=== PATIENT | male | born 1980 | race Hispanic/Latino ===

== ENCOUNTER 2018-09-19 09:13 | Emergency (ER) | payer OTHER, BC ==
[2018-09-19 09:29] VITALS: TEMP 97.8; O2SAT 96; BMI 26.6
--- NOTE | 2018-09-19 09:59 | ED PDOC ---
Arrival/HPI - General Chief Complaint: Abnormal Skin Integrity Time Seen by Provider: 09/19/18 09:36 Historian: Patient - History of Present Illness Narrative History of Present Illness (Text): 09/19/18 09:57 38yo male with pmhx of hypertension who present with complaint of laceration to his right index finger. States he accidentally cut himself with his pocket knife this morning. Notes he is up to date with his TD booster. Denies any other complaint. Have FROM. Past Medical History - Provider Review Nursing Documentation Reviewed: Yes - Infectious Disease Hx of Infectious Diseases: None - Cardiac Hx Cardiac Disorders: Yes Hx Hypertension: Yes - Pulmonary Hx Respiratory Disorders: No - Neurological Hx Neurological Disorder: No - HEENT Hx HEENT Disorder: No - Renal Hx Renal Disorder: No - Endocrine/Metabolic Hx Endocrine Disorders: No - Hematological/Oncological Hx Blood Disorders: No - Integumentary Hx Dermatological Disorder: No - Musculoskeletal/Rheumatological Hx Musculoskeletal Disorders: No - Gastrointestinal Hx Gastrointestinal Disorders: No - Genitourinary/Gynecological Hx Genitourinary Disorders: No - Psychiatric Hx Psychophysiologic Disorder: No Hx Substance Use: No Family/Social History - Physician Review Nursing Documentation Reviewed: Yes Family/Social History: Unknown Family HX Smoking Status: Never Smoked Hx Alcohol Use: Yes Frequency of alcohol use: Socially Hx Substance Use: No Allergies/Home Meds Allergies/Adverse Reactions: Allergies amoxicillin Allergy (Verified 09/19/18 09:29) ANAPHYLAXIS Home Medications: Home Meds Medication Instructions Recorded Confirmed valACYclovir [Valtrex] 500 mg PO DAILY 09/19/18 09/19/18 Review of Systems - Physician Review All systems were reviewed & negative as marked: Yes - Review of Systems Constitutional: Normal Eyes: Normal ENT: Normal Respiratory: Normal Cardiovascular: Normal Gastrointestinal: Normal Genitourinary Male: Normal Musculoskeletal: Normal Skin: Laceration (Right 2nd finger) Neurological: Normal Endocrine: Normal Hemo/Lymphatic: Normal Psychiatric: Normal Physical Exam Vital Signs Reviewed: Yes Vital Signs Temp Pulse Resp BP Pulse Ox 09/19/18 09:29 97.8 F 84 17 134/82 96 Temperature: Afebrile Blood Pressure: Normal Pulse: Regular Respiratory Rate: Normal Appearance: Positive for: Well-Appearing, Non-Toxic, Comfortable Pain Distress: None Mental Status: Positive for: Alert and Oriented X 3 - Systems Exam Head: Present: Atraumatic, Normocephalic Pupils: Present: PERRL Extroacular Muscles: Present: EOMI Conjunctiva: Present: Normal Mouth: Present: Moist Mucous Membranes Neck: Present: Normal Range of Motion Respiratory/Chest: Present: Clear to Auscultation, Good Air Exchange. No: Respiratory Distress, Accessory Muscle Use Cardiovascular: Present: Regular Rate and Rhythm, Normal S1, S2. No: Murmurs Abdomen: No: Tenderness, Distention, Peritoneal Signs Back: Present: Normal Inspection Upper Extremity: Present: Normal Inspection. No: Cyanosis, Edema Lower Extremity: Present: Normal Inspection. No: Edema Neurological: Present: GCS=15, CN II-XII Intact, Speech Normal Skin: Present: Warm, Dry, Normal Color, Laceration (2.0cm linear laceration on right volar 2nd finger). No: Rashes Psychiatric: Present: Alert, Oriented x 3, Normal Insight, Normal Concentration Procedure: Wound Repair - Consent Obtained Consent obtained: Verbal - Performed by Performed by: Mid-level Provider - Indications Indication(s):: Laceration - Location Finger:: Right, Index Shape:: Linear Dimensions Length cm: 2.0 - Anesthetic Technique Anesthetic Technique: Local Local/Regional Anesthetic:: Lidocaine 1% (5) - Debris Debris:: None - Irrigated Irrigated with ml of normal saline: 60 - Complexity Complexity:: Intermediate (2 layer) - Muscle repiar layer closed with Muscle repair layer closed with:: # (5), Size (5), Type (nylon), Technique (interrupted), Wound well approximated, Abx ointment applied, Dressing applied, Tetanus up to date - Patient tolerated procedure Patient Tolerated Procedure:: Well Disposition/Present on Arrival - Present on Arrival Any Indicators Present on Arrival: No History of DVT/PE: No History of Uncontrolled Diabetes: No Urinary Catheter: No History of Decub. Ulcer: No History Surgical Site Infection Following: None - Disposition Have Diagnosis and Disposition been Completed?: Yes Diagnosis: Finger laceration Disposition: HOME/ ROUTINE Disposition Time: 11:10 Patient Plan: Discharge Condition: STABLE Discharge Instructions (ExitCare): Laceration Repair, Laceration Repair With Stitches (DC) Additional Instructions: Follow up with your doctor in 7 to 10 days for suture removal Return to ED for fever, redness, discharge from wound. Referrals: Katty Rawls MD [Medical Doctor] - Follow up with primary Forms: [facility] (Japanese)
[2018-09-19] MEDS ORDERED: Lidocaine 1% 5ml Abboject ONE (10:29)
[2018-09-19 11:01] VITALS: BP 131/78; PULSE 79; RESP 18
== END 2018-09-19 11:45 | disposition home or self-care (01) ==
LOC: ED 09:13
DX: S61.210A Laceration without foreign body of right index finger without damage to nail, initial encounter (principal); W26.0XXA Contact with knife, initial encounter; Y92.9 Unspecified place or not applicable